=== PATIENT | male | born 1965 | race Caucasian/White ===

== ENCOUNTER → 2017-06-28 | Outpatient (CLI) | payer BC ==
--- NOTE | 2017-06-28 11:00 | DIAGNOSTIC IMAGING REPORT ---
KUB HISTORY: RENAL CALCULI COMPARISON: KUB 01/15/2014. FINDINGS: The bowel gas pattern is unremarkable. There are no dilated loops of small bowel to suggest an obstruction. The right renal shadow is obscured by overlying bowel gas. No definite right renal calculi. Increase in size and number of the stones within the lower pole the left kidney. Dominant stone measures 1 cm. No ureteral or bladder calculi identified. No pneumoperitoneum or pneumatosis. IMPRESSION: Increase in size and number of the stones within the lower pole of the left kidney. No definite right renal calculi. Electronically signed by: Antonio Schmid M.D. 06/28/2017 10:59 AM Dictated Date/Time: 06/28/2017 10:58 AM
== END | disposition home or self-care (01) ==
LOC: C.RAD 10:22
DX: R31.29 Other microscopic hematuria (principal); Z87.442 Personal history of urinary calculi; N20.0 Calculus of kidney

== ENCOUNTER → 2017-06-30 | Outpatient (CLI) | payer BC | END | disposition home or self-care (01) | LOC: C.LABSPEC 10:14 | PROVIDERS: ATTEND Urology | DX: R31.9 Hematuria, unspecified (principal) ==

== ENCOUNTER → 2017-09-20 | Outpatient (CLI) | payer BC ==
[~2017-09-20] MED LIST: ASPCH81X PO; ATOR-22 PO; B-COTAB18 PO; CLR10 PO; GLC/500 PO; MAGNESIUM PO; METF-384 PO; OMEG10007 PO; OPTIRAY 320 IV PRN; SERTRALINE PO; VITAMIN D PO
--- NOTE | 2017-09-20 14:15 | DIAGNOSTIC IMAGING REPORT ---
ABDOMEN AND PELVIS CT WITH AND WITHOUT IV CONTRAST, UROGRAM PROTOCOL CT DOSE: 2219.08 mGycm HISTORY: R31.9 Hematuria N20.0 Nephrolithiasis TECHNIQUE: Multiaxial CT images of the abdomen and pelvis were performed both before and after the use of intravenous contrast to evaluate the urinary system. Maximal intensity projection images were performed at the workstation by the radiologist. A dose lowering technique was utilized adhering to the principles of ALARA. COMPARISON STUDY: KUB 06/28/2017. Abdomen and pelvis CT 12/29/2011. FINDINGS: There is a punctate stone within the lower pole of the right kidney and 2 stones within the lower pole of the left kidney with the largest measuring 1.1 cm. No hydronephrosis. No suspicious filling defects seen within the opacified bilateral renal collecting systems, ureters, or bladder. Of note, the mid to distal left ureter is not opacified. The bladder is not well opacified. The kidneys enhance normally. The lung bases are clear. The spleen, gallbladder, pancreas, and adrenal glands are within normal limits. No bowel wall thickening or obstruction. The pelvic organs are unremarkable. No suspicious lytic or blastic osseous lesions. 5 mm hypodense lesion within the right hepatic dome is too small to characterize. IMPRESSION: 1. Bilateral nephrolithiasis. No ureteral stones. No hydronephrosis. 2. No suspicious filling defects seen within the opacified bilateral renal collecting systems, ureters, or bladder. Electronically signed by: Antonio Schmid M.D. 09/20/2017 2:14 PM Dictated Date/Time: 09/20/2017 2:00 PM
== END | disposition home or self-care (01) ==
LOC: C.CTS 11:36
PROVIDERS: ATTEND Urology
DX: N20.0 Calculus of kidney (principal); R31.9 Hematuria, unspecified

== ENCOUNTER → 2017-10-14 | Outpatient (CLI) | payer BC ==
[~2017-10-14] MED LIST changes: +HYDR-5688 PO; -OPTIRAY 320 IV PRN
--- NOTE | 2017-10-14 18:35 | DIAGNOSTIC IMAGING REPORT ---
KUB HISTORY: N20.0 Nephrolithiasis COMPARISON: KUB 06/28/2017. FINDINGS: The bowel gas pattern is unremarkable. There are no dilated loops of small bowel to suggest an obstruction. No right renal or ureteral calculi identified. No change in the stones within the lower pole the left kidney. Dominant stone measures 11 mm. No pneumoperitoneum or pneumatosis. IMPRESSION: Stable left-sided nephrolithiasis. No ureteral calculi. Electronically signed by: Antonio Schmid M.D. 10/14/2017 6:34 PM Dictated Date/Time: 10/14/2017 6:32 PM
== END | disposition home or self-care (01) ==
LOC: C.RAD 17:50
PROVIDERS: ATTEND Urology
DX: N20.0 Calculus of kidney (principal)

== ENCOUNTER → 2017-10-15 | Day surgery (SDC) | payer BC ==
[2017-10-01 08:20] VITALS: Ht 188 cm; Wt 115.9 kg
[~2017-10-15] VITALS: Ht 188 cm; Wt 115.9 kg
[~2017-10-15] MED LIST changes: +ATROPINE SULFATE 0.1 MG/ML 5ML SYR IV PRN; +CIPROFLOXACIN 400MG / D5W IV SCH; +DEXAMETHASONE SOD INJ 4 MG/ML VIAL ONE; +EpHEDrine SULFATE 50MG/5ML SYR ONE; +EpHEDrine SULFATE INJ 50 MG/ML AMP IV PRN; +FENTANYL CITRATE INJ 50 MCG/1 ML 2 ML VIAL IV PRN; +FENTANYL CITRATE INJ 50 MCG/1 ML 2 ML VIAL ONE; +LACTATED RINGER'S 1000ML 1,000 ML IV SCH; +MIDAZOLAM HCL 1 MG/ML 2ML VIAL ONE; +ONDANSETRON INJ 2 MG/ML 2 ML VIAL IV PRN; +ONDANSETRON INJ 2 MG/ML 2 ML VIAL ONE; +OXYCODONE/ACETAMINOPHEN 5-325 TAB PO PRN; +PROPOFOL IV EMULSION 10 MG/ML 20 ML VIAL IV ONE; +SODIUM CHLORIDE 0.9% 1000ML 1,000 ML IV SCH
--- NOTE | 2017-10-15 07:04 | History & Physical Bridge Note ---
H&P Re-Evaluation Bridge Note: I have examined the patient, reviewed the History & Physical and in the interval since the performance of the History & Physical I have noted the following changes of clinical significance: No changes noted
--- NOTE | 2017-10-15 08:37 | Discharge Instructions-SurgCtr ---
Discharge Instructions Date of Service Oct 15, 2017. Visit Reason for Visit: Left Stone Discharge Discharge Diagnosis / Problem: left renal stone Discharge Goals Goal(s): Decrease discomfort, Improve function, Increase independence, Improve disease control, Prevent Disease Progression Medications Stopped Medications Name(s): fish oil, ASA, metformin Activity Recommendations Activity Limitations: resume your previous activity Lifting Limitations: none Exercise/Sports Limitations: none May Resume Sexual Activity: when tolerated Shower/Bathe: no limitations Driving or Machine Use: resume 1 day after discharge Anesthesia . Post Anesthesia Instructions: If you have had General Anesthesia or IV Sedation: * Do not drive today. * Resume driving when surgeon permits. * Do not make important decisions or sign legal documents today. * Call surgeon for: 1. Temperature elevations greater than 101 degrees F. 2. Uncontrollable pain. 3. Excessive bleeding. 4. Persistent nausea and vomiting. 5. Medication intolerance (nausea, vomiting or rash). * For nausea and vomiting use only clear liquids such as: tea, soda, bouillon until nausea subsides, then gradually increase diet as tolerated. * If you have any concerns or questions, call your surgeon's office. If physician is unavailable and it is an emergency, call 911 or go to the nearest emergency room. . Instructions / Follow-Up Instructions / Follow-Up Please keep your previously scheduled follow up appointment. Diet Recommendations Home Diet: no limitations, resume previous diet Procedures Procedures Performed: Left Extracorporeal Shock Wave Lithotripsy Pending Studies Studies pending at discharge: no Medical Emergencies . Who to Call and When: Medical Emergencies: If at any time you feel your situation is an emergency, please call 911 immediately. . Non-Emergent Contact Non-Emergency issues call your: Urologist Call Non-Emergent contact if: you have a fever, temperature is above 101.5, your pain is not controlled, your pain is worsening . . "Provider Documentation" section prepared by Eddie Juarez. . [place] Drug Monitoring Program Search Results: patient reviewed within database, no issues identified
--- NOTE | 2017-10-15 08:39 | [facility] Operative Report ---
Operative Report Operative Date Oct 15, 2017. Pre-Operative Diagnosis Left Renal Stone Post-Operative Diagnosis Same Procedure(s) Performed Left Extracorporeal Shock Wave Lithotripsy Surgeon Dr. Chelo Ellis Film Laboratory Technician Surgeon(s) None Estimated Blood Loss 0 mL Findings Left renal stone - appeared to fragment nicely Specimens None Drains none Anesthesia Gen. Complication(s) None Disposition Recovery Room / PACU (stable) Indications Left renal stone Description of Procedure The patient was identified in the preoperative holding area, appropriate informed consent was reviewed and completed and the patient was transported to the operating suite. Upon arrival appropriate preoperative antibiotics were administered and general anesthesia induced. The patient was placed in supine position and the stone was localized under fluoroscopy. A total of 2500 shocks were delivered to the stone. There appeared to be good fragmentation of the stone. Details of this procedure can be found on the [place] [facility] information sheet. At the conclusion of the case the patient was extubated and taken to the PACU in stable condition. There were no complications. I attest to the content of the Intraoperative Record and any orders documented therein. Any exceptions are noted below.
--- NOTE | 2017-10-15 09:38 | Anesthesia Progress Nt - [facility] ---
Anesthesia Post Op Note Date & Time Oct 15, 2017 at 09:38 Vital Signs Pain Intensity: 0 Vital Signs Past 12 Hours Date Time Temp Pulse Resp B/P (MAP) Pulse Ox O2 Delivery O2 Flow Rate FiO2 10/15/17 09:25 128/92 10/15/17 09:22 67 17 10/15/17 09:22 67 17 98 10/15/17 09:20 36.0 68 13 128/92 97 Room Air 10/15/17 09:20 125/89 10/15/17 09:17 62 10 97 10/15/17 09:17 63 10 10/15/17 09:15 124/87 10/15/17 09:12 78 13 10/15/17 09:12 78 13 97 10/15/17 09:10 118/86 10/15/17 09:07 71 16 99 10/15/17 09:07 71 16 10/15/17 09:05 126/88 10/15/17 09:02 72 17 98 10/15/17 09:02 73 17 10/15/17 09:00 123/87 10/15/17 08:57 123/75 10/15/17 08:57 36.0 71 16 123/75 99 Mask 6 10/15/17 06:59 36.3 68 18 137/87 (104) 97 Room Air Notes Mental Status: alert / awake / arousable, participated in evaluation Pt Amnestic to Procedure: Yes Nausea / Vomiting: adequately controlled Pain: adequately controlled Airway Patency, RR, SpO2: stable & adequate BP & HR: stable & adequate Hydration State: stable & adequate Anesthetic Complications: no major complications apparent
[2017-10-15 10:01] VITALS: BP 126/85; PULSE 62; TEMP 36.2; O2SAT 98
== END | disposition home or self-care (01) ==
LOC: X.SURG 06:49
PROVIDERS: ATTEND Urology
DX: N20.0 Calculus of kidney (principal); E78.5 Hyperlipidemia, unspecified; E11.9 Type 2 diabetes mellitus without complications; J45.909 Unspecified asthma, uncomplicated; Z79.84 Long term (current) use of oral hypoglycemic drugs; Z79.899 Other long term (current) drug therapy

== ENCOUNTER → 2017-10-25 | Outpatient (CLI) | payer BC ==
[~2017-10-25] MED LIST changes: -ATROPINE SULFATE 0.1 MG/ML 5ML SYR IV PRN; -CIPROFLOXACIN 400MG / D5W IV SCH; -DEXAMETHASONE SOD INJ 4 MG/ML VIAL ONE; -EpHEDrine SULFATE 50MG/5ML SYR ONE; -EpHEDrine SULFATE INJ 50 MG/ML AMP IV PRN; -FENTANYL CITRATE INJ 50 MCG/1 ML 2 ML VIAL IV PRN; -FENTANYL CITRATE INJ 50 MCG/1 ML 2 ML VIAL ONE; -LACTATED RINGER'S 1000ML 1,000 ML IV SCH; -MIDAZOLAM HCL 1 MG/ML 2ML VIAL ONE; -ONDANSETRON INJ 2 MG/ML 2 ML VIAL IV PRN; -ONDANSETRON INJ 2 MG/ML 2 ML VIAL ONE; -OXYCODONE/ACETAMINOPHEN 5-325 TAB PO PRN; -PROPOFOL IV EMULSION 10 MG/ML 20 ML VIAL IV ONE; -SODIUM CHLORIDE 0.9% 1000ML 1,000 ML IV SCH
--- NOTE | 2017-10-25 17:50 | DIAGNOSTIC IMAGING REPORT ---
KUB HISTORY: NEPHROLITHIASIS COMPARISON: KUB 10/14/2017. FINDINGS: The bowel gas pattern is unremarkable. There are no dilated loops of small bowel to suggest an obstruction. Renal shadows are mostly obscured by overlying bowel gas. No ureteral or bladder calculi identified. No right renal calculi. No significant change in the 11 mm stone within the lower pole of the left kidney. No pneumoperitoneum or pneumatosis. IMPRESSION: Stable left-sided nephrolithiasis. No ureteral calculi. Electronically signed by: Antonio Schmid M.D. 10/25/2017 5:48 PM Dictated Date/Time: 10/25/2017 5:47 PM
== END | disposition home or self-care (01) ==
LOC: C.RAD 17:29
PROVIDERS: ATTEND Urology
DX: N20.0 Calculus of kidney (principal)

== ENCOUNTER → 2017-11-08 | Outpatient (CLI) | payer BC ==
[~2017-11-08] MED LIST changes: +SERT-234 PO
--- NOTE | 2017-11-08 18:19 | DIAGNOSTIC IMAGING REPORT ---
KUB CLINICAL HISTORY: Nephrolithiasis. Postoperative examination. FINDINGS: 2 AP supine abdominal radiographs are compared to study dated 10/25/2017 and correlated with abdominal CT dated 09/20/2017. There is no bowel obstruction. Colonic fecal retention is noted. There is a 1.3 cm calculus projecting over the lower pole of the left kidney. This may be partially fragmented. No calculi are seen projecting over the right kidney or along the course of the ureters. The bony structures appear intact. IMPRESSION: 1. Again seen is a 1.3 cm left lower pole calculus. This may be partially fragmented as compared to previous. 2. No calcifications are seen projecting over the right kidney or along the course of the ureters. Electronically signed by: Connor Fitzpatrick M.D. 11/08/2017 6:18 PM Dictated Date/Time: 11/08/2017 6:16 PM
== END | disposition home or self-care (01) ==
LOC: C.RAD 18:02
PROVIDERS: ATTEND Urology
DX: N20.0 Calculus of kidney (principal)

== ENCOUNTER → 2017-11-09 | Outpatient (CLI) | payer BC | END | disposition home or self-care (01) | LOC: C.LABSPEC 17:12 | PROVIDERS: ATTEND Urology | DX: N20.0 Calculus of kidney (principal) ==

== ENCOUNTER → 2017-11-12 | Day surgery (SDC) | payer BC ==
[2017-11-10 13:07] VITALS: Ht 188 cm; Wt 115.9 kg
[~2017-11-12] VITALS: Ht 188 cm; Wt 115.9 kg
[~2017-11-12] MED LIST changes: +ACETAMINOPHEN 325 MG TAB PO PRN; +ATROPINE SULFATE 0.1 MG/ML 5ML SYR IV PRN; +CIPROFLOXACIN / D5W 400 MG IV SCH; +DEXAMETHASONE SOD INJ 4 MG/ML VIAL ONE; +FENTANYL CITRATE INJ 50 MCG/1 ML 2 ML VIAL IV PRN; +FENTANYL CITRATE INJ 50 MCG/1 ML 2 ML VIAL ONE; -HYDR-5688 PO; +LACTATED RINGER'S 1000ML 1,000 ML IV SCH; +LIDOCAINE HCL 2% 2 ML VIAL (20MG/ML) ONE; +MIDAZOLAM HCL 1 MG/ML 2ML VIAL ONE; +ONDANSETRON INJ 2 MG/ML 2 ML VIAL IV PRN; +ONDANSETRON INJ 2 MG/ML 2 ML VIAL ONE; +OXYCODONE/ACETAMINOPHEN 5-325 TAB PO PRN; +PROPOFOL IV EMULSION 10 MG/ML 20 ML VIAL IV ONE; -SERTRALINE PO; +SODIUM CHLORIDE 0.9% 1000ML 1,000 ML IV SCH
--- NOTE | 2017-11-12 10:04 | Discharge Instructions-SurgCtr ---
Discharge Instructions Date of Service Nov 12, 2017. Visit Reason for Visit: Stones Discharge Discharge Diagnosis / Problem: stones Discharge Goals Goal(s): Decrease discomfort, Improve function, Increase independence, Improve disease control Medications Stopped Medications Name(s): aspirin and fish oil stopped 11-01-17 and glugophage stopped 11-10-17 per instruction. Activity Recommendations Activity Limitations: resume your previous activity Lifting Limitations: none Exercise/Sports Limitations: none May Resume Sexual Activity: when tolerated Shower/Bathe: no limitations Driving or Machine Use: no limitations Anesthesia . Post Anesthesia Instructions: If you have had General Anesthesia or IV Sedation: * Do not drive today. * Resume driving when surgeon permits. * Do not make important decisions or sign legal documents today. * Call surgeon for: 1. Temperature elevations greater than 101 degrees F. 2. Uncontrollable pain. 3. Excessive bleeding. 4. Persistent nausea and vomiting. 5. Medication intolerance (nausea, vomiting or rash). * For nausea and vomiting use only clear liquids such as: tea, soda, bouillon until nausea subsides, then gradually increase diet as tolerated. * If you have any concerns or questions, call your surgeon's office. If physician is unavailable and it is an emergency, call 911 or go to the nearest emergency room. . Instructions / Follow-Up Instructions / Follow-Up please keep your previously scheduled follow up appointment Diet Recommendations Home Diet: no limitations Procedures Procedures Performed: L ESWL Pending Studies Studies pending at discharge: no Medical Emergencies . Who to Call and When: Medical Emergencies: If at any time you feel your situation is an emergency, please call 911 immediately. . Non-Emergent Contact Non-Emergency issues call your: Urologist Call Non-Emergent contact if: you have a fever, temperature is above 101.5, your pain is not controlled, your pain is worsening . . "Provider Documentation" section prepared by Eddie Juarez. .
--- NOTE | 2017-11-12 10:30 | [facility] Operative Report ---
Operative Report Operative Date Nov 12, 2017. Pre-Operative Diagnosis Left Renal Stone Post-Operative Diagnosis Same Procedure(s) Performed Left Repeat Extracorporeal Shock Wave Lithotripsy Surgeon Dr. Chelo Ellis Scleroscope Tester Surgeon(s) None Estimated Blood Loss 0 mL Findings Left renal pelvis stone Specimens None Drains none Anesthesia Gen. Complication(s) None Disposition Recovery Room / PACU (stable) Indications Left renal stone Description of Procedure The patient was identified in the preoperative holding area, appropriate informed consent was reviewed and completed and the patient was transported to the operating suite. Upon arrival appropriate preoperative antibiotics were administered and general anesthesia induced. The patient was placed in supine position and the stone was localized under fluoroscopy. A total of 2500 shocks were delivered to the stone. There appeared to be good fragmentation of the stone. Details of this procedure can be found on the [place] [facility] information sheet. At the conclusion of the case the patient was extubated and taken to the PACU in stable condition. There were no complications. I attest to the content of the Intraoperative Record and any orders documented therein. Any exceptions are noted below.
[2017-11-12 11:09] VITALS: TEMP 36.2
--- NOTE | 2017-11-12 11:31 | Anesthesia Progress Nt - [facility] ---
Anesthesia Post Op Note Date & Time Nov 12, 2017 at 11:31 Vital Signs Pain Intensity: 0 Vital Signs Past 12 Hours Date Time Temp Pulse Resp B/P (MAP) Pulse Ox O2 Delivery O2 Flow Rate FiO2 11/12/17 11:09 36.2 60 18 111/72 (85) 98 Room Air 11/12/17 11:06 119/80 11/12/17 11:03 36.4 61 12 118/81 97 Room Air 11/12/17 11:02 63 10 97 11/12/17 11:02 63 10 11/12/17 11:01 118/81 11/12/17 10:58 59 10 97 11/12/17 10:58 60 10 11/12/17 10:57 64 14 98 11/12/17 10:57 63 14 11/12/17 10:56 119/81 11/12/17 10:52 62 10 100 11/12/17 10:52 63 10 11/12/17 10:51 114/75 11/12/17 10:47 63 14 11/12/17 10:47 63 14 99 11/12/17 10:46 111/72 11/12/17 10:42 64 14 11/12/17 10:42 63 14 98 11/12/17 10:41 106/75 11/12/17 10:38 106/67 11/12/17 10:37 36.1 66 12 106/67 95 Diffusion Mask 6 11/12/17 10:37 68 11/12/17 10:37 68 97 11/12/17 08:52 37.1 67 16 138/88 (105) 96 Room Air Notes Mental Status: alert / awake / arousable, participated in evaluation Pt Amnestic to Procedure: Yes Nausea / Vomiting: adequately controlled Pain: adequately controlled Airway Patency, RR, SpO2: stable & adequate BP & HR: stable & adequate Hydration State: stable & adequate Anesthetic Complications: no major complications apparent
[2017-11-12 11:36] VITALS: BP 119/81; PULSE 58; O2SAT 98
== END | disposition home or self-care (01) ==
LOC: X.SURG 08:34
PROVIDERS: ATTEND Urology
DX: N20.0 Calculus of kidney (principal); E11.9 Type 2 diabetes mellitus without complications; J45.909 Unspecified asthma, uncomplicated; E78.5 Hyperlipidemia, unspecified; Z79.82 Long term (current) use of aspirin; Z79.899 Other long term (current) drug therapy; R73.03 Prediabetes; E66.9 Obesity, unspecified

== ENCOUNTER → 2017-12-01 | Outpatient (CLI) | payer OTHER ==
[~2017-12-01] MED LIST changes: -ACETAMINOPHEN 325 MG TAB PO PRN; -ATROPINE SULFATE 0.1 MG/ML 5ML SYR IV PRN; -CIPROFLOXACIN / D5W 400 MG IV SCH; -DEXAMETHASONE SOD INJ 4 MG/ML VIAL ONE; -FENTANYL CITRATE INJ 50 MCG/1 ML 2 ML VIAL IV PRN; -FENTANYL CITRATE INJ 50 MCG/1 ML 2 ML VIAL ONE; -LACTATED RINGER'S 1000ML 1,000 ML IV SCH; -LIDOCAINE HCL 2% 2 ML VIAL (20MG/ML) ONE; -MIDAZOLAM HCL 1 MG/ML 2ML VIAL ONE; -ONDANSETRON INJ 2 MG/ML 2 ML VIAL IV PRN; -ONDANSETRON INJ 2 MG/ML 2 ML VIAL ONE; -OXYCODONE/ACETAMINOPHEN 5-325 TAB PO PRN; -PROPOFOL IV EMULSION 10 MG/ML 20 ML VIAL IV ONE; -SODIUM CHLORIDE 0.9% 1000ML 1,000 ML IV SCH
--- NOTE | 2017-12-01 18:38 | DIAGNOSTIC IMAGING REPORT ---
KUB CLINICAL HISTORY: 52 years-old Male presenting with NEPHROLITHIASIS. TECHNIQUE: Single supine view of the abdomen was obtained. COMPARISON: 11/08/[address] from 09/20/2017. FINDINGS: Nonobstructive bowel gas pattern. Moderate stool burden in the right colon. No gross pneumoperitoneum. Allowing for bowel gas and stool, no no radiographically apparent right renal calculus secondary to the presence of the right colonic stool burden. Unchanged appearance of the calculus at the lower pole the left kidney. No calcifications along the courses of the ureters. No bladder calculi evident. Osseous structures normal. IMPRESSION: 1. Stable position of the left renal calculus. No radiographically apparent right renal calculi or ureteral calculi. Electronically signed by: Hussain Carver M.D. 12/01/2017 6:37 PM Dictated Date/Time: 12/01/2017 6:35 PM
== END | disposition home or self-care (01) ==
LOC: C.RAD 18:15
PROVIDERS: ATTEND Urology
DX: N20.0 Calculus of kidney (principal)

== ENCOUNTER → 2018-01-18 | Outpatient (CLI) | payer OTHER ==
--- NOTE | 2018-01-18 19:57 | DIAGNOSTIC IMAGING REPORT ---
KUB CLINICAL HISTORY: Nephrolithiasis. FINDINGS: 2 AP supine abdominal radiographs are compared to study dated 12/01/2017 and correlated with abdominal CT dated 09/20/2017. There is no bowel obstruction. Colonic fecal retention is noted. There are at least 3 stone fragments projecting over the lower pole of the left kidney measuring up to 5 mm. No calculi are seen projecting over the right kidney or along the course of the ureters. The bony structures appear intact. IMPRESSION: 1. There are at least 3 stones fragments projecting over the lower pole of the left kidney measuring up to 5 mm. 2. No calcifications are seen projecting over the right kidney or along the course of the ureters. Electronically signed by: Connor Fitzpatrick M.D. 01/18/2018 7:56 PM Dictated Date/Time: 01/18/2018 7:54 PM
== END | disposition home or self-care (01) ==
LOC: C.RAD 18:34
PROVIDERS: ATTEND Urology
DX: N20.0 Calculus of kidney (principal)